=== PATIENT | male | born 1975 | race Caucasian/White ===

== ENCOUNTER 2017-07-11 14:45 | Emergency (ER) | payer OTHER, MEDICAID ==
[~2017-07-11] VITALS: Ht 175.3 cm; Wt 83.0 kg
[2017-07-11 15:12] VITALS: BP 140/98
== END 2017-07-11 15:50 | disposition home or self-care (01) ==
LOC: ER 14:45
DX: H66.93 Otitis media, unspecified, bilateral (principal)